=== PATIENT | female | born 1995 | race Caucasian/White ===

== ENCOUNTER 2023-09-13 15:48 | Emergency (ER) | payer BC ==
--- NOTE | 2023-09-13 15:54 | ERPHSYRPT ---
- History of Present Illness Time Seen by Provider: 09/13/23 15:53 Source: patient, family Exam Limitations: no limitations Physician History: This is a 28-year-old white female patient who arrives by private vehicle with her mother and has had a global high intensity headache described as generalized constant pressure. Is been present for 3 days. She has no history of head injury. She denies being . She denies vision changes. She has not responded to Aleve or ibuprofen. Her last menstrual period was 2 weeks ago. Patient denies chest pain. Denies shortness of breath. Patient was seen at [facility] earlier today and she states the COVID test and the influenza A and B test were negative. Timing/Duration: day(s) (3) Head Pain Location: global Severity of Pain-Max: moderate Severity of Pain-Current: moderate Recent Head Trauma: no recent headache/trauma Modifying Factors: Improves With: exposure to light, noise Associated Symptoms: sensitive to light, No vision changes Previous symptoms: no prior history, no recent treatment Allergies/Adverse Reactions: cephalexin Allergy (Verified 09/13/23 16:00) Home Medications: Norgestimate-Ethinyl Estradiol [Sprintec 28 Day Tablet] 1 tab PO DAILY 09/13/23 [History] Sertraline HCl 200 mg PO DAILY 09/13/23 [History] Travel Risk - International Travel Have you traveled outside of the country in past 3 weeks: No - Emerging Infectious Disease Are you exhibiting symptoms associated with any current EIDs: No - Review of Systems Constitutional: No Symptoms Eyes: No Symptoms Ears, Nose, & Throat: No Symptoms Respiratory: No Symptoms Cardiac: No Symptoms Abdominal/Gastrointestinal: No Symptoms Genitourinary Symptoms: No Symptoms Musculoskeletal: Arthralgias, Myalgias Neurological: Headache Psychological: No Symptoms Endocrine: No Symptoms Hematologic/Lymphatic: No Symptoms Immunological/Allergic: No Symptoms All Other Systems: Reviewed and Negative - Past Medical History Pertinent Past Medical History: Yes - Nursing Vital Signs Nursing Vital Signs: Initial Vital Signs Temperature 97.7 F 09/13/23 15:55 Pulse Rate 64 09/13/23 15:55 Respiratory Rate 16 09/13/23 15:55 Blood Pressure 120/70 09/13/23 15:55 O2 Sat by Pulse Oximetry 100 09/13/23 15:55 Pain Scale Pain Intensity 0 - Physical Exam General Appearance: mild distress, alert, anxiety Eye Exam: PERRL/EOMI, eyes nml inspection Ears, Nose, Throat Exam: normal ENT inspection, moist mucous membranes Neck Exam: normal inspection, non-tender, supple, full range of motion Respiratory Exam: normal breath sounds, lungs clear, airway intact, No chest tenderness, No respiratory distress Cardiovascular Exam: regular rate/rhythm, normal heart sounds, normal peripheral pulses Gastrointestinal/Abdominal Exam: soft, normal bowel sounds, No tenderness Back Exam: normal inspection, normal range of motion, No CVA tenderness, No vertebral tenderness Extremity Exam: normal inspection, normal range of motion, pelvis stable Mental Status Exam: alert, oriented x 3, 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 Exam: normal hearing, normal speech, PERRL Coordination/Gait Exam: normal finger to nose, normal gait, normal cerebellar function Motor/Sensory Exam: no motor deficit, no sensory deficit Skin Exam: normal color, warm, dry Lymphatic Exam: No adenopathy SpO2 Interpretation: normal O2 Delivery: Room Air - Course Nursing assessment & vital signs reviewed: Yes Ordered Tests: Active Orders 24 hr Category Date Time Status IV Insertion STAT Care 09/13/23 16:24 Active HEAD WITHOUT CONTRAST [CT] Stat Exams 09/13/23 16:11 Completed BMP Stat Lab 09/13/23 16:15 Completed CBC W DIFF Stat Lab 09/13/23 16:15 Completed CULTURE,URINE Stat Lab 09/13/23 16:27 Received HCG QUALITATIVE, SERUM Stat Lab 09/13/23 16:15 Completed MONO SCREEN Stat Lab 09/13/23 16:15 Completed UA W/RFX UR CULTURE Stat Lab 09/13/23 16:27 Completed Medication Summary Discontinued Medications Generic Name Dose Route Start Last Admin Trade Name Antonia PRN Reason Stop Dose Admin Diphenhydramine HCl 25 mg 09/13/23 16:19 09/13/23 16:42 Diphenhydramine Hcl 50 Mg/Ml Vial IV 09/13/23 16:20 25 mg STAT ONE Administration Diphenhydramine HCl Confirm 09/13/23 16:28 Diphenhydramine Hcl 50 Mg/Ml Vial Administered 09/13/23 16:29 Dose 50 mg .ROUTE .STK-MED ONE Sodium Chloride 500 mls @ 500 mls/hr 09/13/23 16:18 09/13/23 17:38 Sodium Chloride 0.9% 500 Ml IV 09/13/23 17:17 Infused .Q1H ONE Infusion Sodium Chloride Confirm 09/13/23 16:28 Sodium Chloride 0.9% 500 Ml Administered 09/13/23 16:29 Dose 500 mls @ ud IV .STK-MED ONE Ketorolac Tromethamine 30 mg 09/13/23 16:19 09/13/23 16:42 Ketorolac Tromethamine 30 Mg/Ml Inj IV 09/13/23 16:20 30 mg STAT ONE Administration Ketorolac Tromethamine Confirm 09/13/23 16:27 Ketorolac Tromethamine 30 Mg/Ml Inj Administered 09/13/23 16:28 Dose 30 mg .ROUTE .STK-MED ONE Levofloxacin 500 mg 09/13/23 17:28 09/13/23 17:33 Levofloxacin 500 Mg Tablet PO 09/13/23 17:29 500 mg STAT ONE Administration Levofloxacin Confirm 09/13/23 17:30 Levofloxacin 500 Mg Tablet Administered 09/13/23 17:31 Dose 500 mg .ROUTE .STK-MED ONE Prochlorperazine Edisylate 5 mg 09/13/23 16:19 09/13/23 16:43 Prochlorperazine Edisylate 10 Mg/2 Ml Vial IV 09/13/23 16:20 5 mg STAT ONE Administration Prochlorperazine Edisylate Confirm 09/13/23 16:28 Prochlorperazine Edisylate 10 Mg/2 Ml Vial Administered 09/13/23 16:29 Dose 10 mg .ROUTE .STK-MED ONE Lab/Rad Data: Laboratory Result Diagrams 09/13/23 16:15 09/13/23 16:15 Laboratory Results 09/13/23 09/13/23 09/13/23 Range/Units 16:27 16:15 16:15 WBC (3.98-10.04) x10^3/uL RBC (3.93-5.22) x10^6/uL Hgb (11.2-15.7) g/dL Hct (34.1-44.9) % MCV (79.4-94.8) fL MCH (25.6-32.2) pg MCHC (32.2-35.5) g/dL RDW (11.7-14.4) % Plt Count (182-369) x10^3/uL MPV (9.4-12.3) fL Gran % (34.0-71.1) % Immature Gran % (Auto) (0.001-0.429) % Nucleat RBC Rel Count (0.00-0.2) % Eos # (Auto) (0.04-0.36) x10^3/uL Immature Gran # (Auto) (0.001-0.031) x10^3u/L Absolute Lymphs (auto) (1.18-3.74) x10^3/uL Absolute Monos (auto) (0.24-0.86) x10^3/uL Absolute Nucleated RBC (0.00-0.012) x10^3u/L Lymphocytes % (19.3-51.7) % Monocytes % (4.7-12.5) % Eosinophils % (0.7-5.8) % Basophils % (0.1-1.2) % Absolute Granulocytes (1.56-6.13) x10^3/uL Basophils # (0.01-0.08) x10^3/uL Sodium (135-145) mmol/L Potassium (3.5-5.1) mmol/L Chloride (98-107) mmol/L Carbon Dioxide (22-30) mmol/L Anion Gap (5-15) MEQ/L BUN (7-17) mg/dL Creatinine (0.52-1.04) mg/dL Estimated GFR ML/MIN Glucose (74-106) mg/dL Calcium (8.4-10.2) mg/dL Serum HCG, Qual NEGATIVE (NEGATIVE) Urine Color Yellow (Yellow) Urine Appearance Clear (Clear) Urine pH 6.0 (4.6-8.0) Ur Specific [place] 1.020 (1.005-1.030) Urine Protein Trace A (Negative) Urine Glucose (UA) Negative (Negative) mg/dL Urine Ketones Trace A (Negative) Urine Blood Negative (Negative) Urine Nitrite Negative (Negative) Urine Bilirubin Negative (Negative) Urine Urobilinogen 0.2 (0.2) mg/dL Ur Leukocyte Esterase Trace A (Negative) U Hyaline Cast (Auto) NONE SEEN (0-2) /LPF Urine Microscopic RBC 3-5 (0-5) /HPF Urine Microscopic WBC 6-10 A (0-5) /HPF Ur Epithelial Cells Moderate A (None Seen) /HPF Urine Bacteria Few A (None Seen) /HPF Urine Culture Reflexed YES (NO) Monoscreen POSITIVE A (NEGATIVE) 09/13/23 09/13/23 Range/Units 16:15 16:15 WBC 5.1 (3.98-10.04) x10^3/uL RBC 4.01 (3.93-5.22) x10^6/uL Hgb 12.2 (11.2-15.7) g/dL Hct 36.6 (34.1-44.9) % MCV 91.3 (79.4-94.8) fL MCH 30.4 (25.6-32.2) pg MCHC 33.3 (32.2-35.5) g/dL RDW 12.5 (11.7-14.4) % Plt Count 150 L (182-369) x10^3/uL MPV 9.8 (9.4-12.3) fL Gran % 56.4 (34.0-71.1) % Immature Gran % (Auto) 0.2 (0.001-0.429) % Nucleat RBC Rel Count 0.0 (0.00-0.2) % Eos # (Auto) 0.04 (0.04-0.36) x10^3/uL Immature Gran # (Auto) 0.01 (0.001-0.031) x10^3u/L Absolute Lymphs (auto) 1.75 (1.18-3.74) x10^3/uL Absolute Monos (auto) 0.40 (0.24-0.86) x10^3/uL Absolute Nucleated RBC 0.00 (0.00-0.012) x10^3u/L Lymphocytes % 34.5 (19.3-51.7) % Monocytes % 7.9 (4.7-12.5) % Eosinophils % 0.8 (0.7-5.8) % Basophils % 0.2 (0.1-1.2) % Absolute Granulocytes 2.86 (1.56-6.13) x10^3/uL Basophils # 0.01 (0.01-0.08) x10^3/uL Sodium 137 (135-145) mmol/L Potassium 3.8 (3.5-5.1) mmol/L Chloride 105 (98-107) mmol/L Carbon Dioxide 25 (22-30) mmol/L Anion Gap 11.3 (5-15) MEQ/L BUN 13 (7-17) mg/dL Creatinine 0.91 (0.52-1.04) mg/dL Estimated GFR 88.7 ML/MIN Glucose 91 (74-106) mg/dL Calcium 8.8 (8.4-10.2) mg/dL Serum HCG, Qual (NEGATIVE) Urine Color (Yellow) Urine Appearance (Clear) Urine pH (4.6-8.0) Ur Specific [place] (1.005-1.030) Urine Protein (Negative) Urine Glucose (UA) (Negative) mg/dL Urine Ketones (Negative) Urine Blood (Negative) Urine Nitrite (Negative) Urine Bilirubin (Negative) Urine Urobilinogen (0.2) mg/dL Ur Leukocyte Esterase (Negative) U Hyaline Cast (Auto) (0-2) /LPF Urine Microscopic RBC (0-5) /HPF Urine Microscopic WBC (0-5) /HPF Ur Epithelial Cells (None Seen) /HPF Urine Bacteria (None Seen) /HPF Urine Culture Reflexed (NO) Monoscreen (NEGATIVE) - Progress Progress: improved, re-examined Air Movement: good Progress Note: 09/13/23 16:25 My medical decision making and the assignment of moderate complexity to this patient's medical issue today is based on review of the patient's past medical history, review of the patient's medication list, review of patient drug allergy list, history present illness and physical findings on examination. The workup in this patient includes intravenous line placement, infusion normal saline solution, infusion of Benadryl, Compazine and Toradol, urinalysis, CBC, BMP and monotest. In addition, the patient will undergo a CT scan of the head without contrast. Differential diagnosis includes but is not limited to acute intracranial abnormality, mononucleosis, urinary tract infection, dehydration, anemia 09/13/23 17:41 Interpreted the patient's laboratory data results. Based on the laboratory data results, the patient has mononucleosis and a urinary tract infection. CT scan of the head without contrast is normal. This study was interpreted by the radiologist and I reviewed the impression. Blood Culture(s) Obtained: No Antibiotics given: Yes Counseled pt/family regarding: lab results, diagnosis, need for follow-up, rad results Medical Desision Making - Independent Historian Additional History obtained from: Mother - Diagnostic Testing Diagnostic test were ordered, analyzed, and reviewed by me: Yes Radiological Interpretation: Reviewed by me, Teleradiologist Report - Risk of complications The pt has a mod risk of morbidity or mortality based on: Need for prescription drug management - Departure Departure Disposition: Home Clinical Impression: Mononucleosis, UTI (urinary tract infection) Condition: Stable Critical Care Time: No Referrals: JENIFER CUNHA VIOLIN MECHANIC [Primary Care Provider] - Follow up/PCP as directed Additional Instructions: Drink plenty of fluids. Use Tylenol and ibuprofen for fever and pain control. Take your antibiotics and other medications as prescribed. Forms: Work/School Release Form Prescriptions: Ciprofloxacin [Cipro 500 MG] 500 mg PO BID #14 tablet
[2023-09-13 16:08] VITALS: TEMP 97.7
[2023-09-13 16:25] LABS: Absolute Neutrophil Ct (ANC) 2.86 x10^3/uL (1.56-6.13); BASOPHIL % 0.2 % (0.1-1.2); Basophil (Absolute #) 0.01 x10^3/uL (0.01-0.08); Eosinophil % 0.8 % (0.7-5.8); Eosinophil (Absolute #) 0.04 x10^3/uL (0.04-0.36); Hematocrit 36.6 % (34.1-44.9); Hemoglobin 12.2 g/dL (11.2-15.7); IMMATURE GRAN # 0.01 x10^3u/L (0.001-0.031); IMMATURE GRAN % 0.2 % (0.001-0.429); Lymphocyte (Absolute #) 1.75 x10^3/uL (1.18-3.74); Lymphocytes % 34.5 % (19.3-51.7); Mean Cell Volume 91.3 fL (79.4-94.8); Mean Corpuscular Hemoglobin 30.4 pg (25.6-32.2); Mean Corpuscular Hgb Concent. 33.3 g/dL (32.2-35.5); Mean Platelet Volume 9.8 fL (9.4-12.3); Monocytes % 7.9 % (4.7-12.5); Neutrophil % 56.4 % (34.0-71.1); Platelet Count 150 x10^3/uL (182-369); Red Blood Count 4.01 x10^6/uL (3.93-5.22); Red Cell Distribution Width 12.5 % (11.7-14.4); White Blood Count 5.1 x10^3/uL (3.98-10.04)
[2023-09-13] MEDS ORDERED: TORAdol 30 mg Injection ONE (16:27)
[2023-09-13] MEDS ORDERED: Compazine 10 MG/2 ML ONE (16:28)
[2023-09-13] MEDS ORDERED: BENADRYL 50 MG/ML ONE (16:28)
[2023-09-13] MEDS ORDERED: Sodium Chloride 0.9% 500 ML 500 ML IV ONE (16:28)
[2023-09-13 16:38] LABS: ANION GAP 11.3 MEQ/L (5-15); Calcium 8.8 mg/dL (8.4-10.2); Creatinine 1 0.91 mg/dL (0.52-1.04); EST GLOMERULAR FILTRATION RATE 88.7 ML/MIN; Potassium 3.8 mmol/L (3.5-5.1)
[2023-09-13 16:39] LABS: Appearance Clear (Clear); Bacteria Few /HPF (None Seen); Bilirubin Negative (Negative); Blood Negative (Negative); Epithelial Cells Moderate /HPF (None Seen); Glucose, Urine Negative (Negative); Hyaline Casts NONE SEEN /LPF (0-2); Ketones Trace (Negative); Leukocyte Esterase Trace (Negative); Nitrite Negative (Negative); Protein,Urine Dip Trace (Negative); Urobilinogen 0.2 mg/dL (0.2)
[2023-09-13 16:40] LABS: ADD URINE CULTURE? YES (NO)
[2023-09-13] MEDS: Sodium Chloride 0.9% 500 ML 500 ML IV ONE (16:41)
[2023-09-13] MEDS: TORAdol 30 mg Injection IV ONE (16:42)
[2023-09-13] MEDS: BENADRYL 50 MG/ML IV ONE (16:42)
[2023-09-13 16:43] LABS: HCG SERUM TEST NEGATIVE (NEGATIVE)
[2023-09-13] MEDS: Compazine 10 MG/2 ML IV ONE (16:43)
--- NOTE | 2023-09-13 17:08 | XRAY ---
Indication: Severe headache 3 days. Multiple contiguous axial images obtained through the head without contrast. Comparison: None Normal appearing brain parenchyma, ventricles, and bony calvarium. Visualized paranasal sinuses and mastoid air cells are clear. Impression: Normal CT head without contrast exam.
[2023-09-13] MEDS ORDERED: Levofloxacin 500 MG Tablet ONE (17:30)
[2023-09-13] MEDS: Levofloxacin 500 MG Tablet PO ONE (17:33)
[2023-09-13 17:44] VITALS: BP 111/69; PULSE 79; RESP 14; O2SAT 97
== END 2023-09-13 17:52 | disposition home or self-care (01) ==
LOC: ED 15:48
DX: B27.90 Infectious mononucleosis, unspecified without complication (principal); N39.0 Urinary tract infection, site not specified; R51.9 Headache, unspecified; Z79.899 Other long term (current) drug therapy
CPT/HCPCS: 36000; 36415; 70450; 80048; 81001; 84703; 85025; 86308; 87086; 96374; 96375; 99284; J1200; J1885; A9270-GY

== ENCOUNTER 2023-10-09 17:47 | Emergency (ER) | payer BC ==
[2023-10-09 18:06] VITALS: RESP 20; TEMP 98.4
[2023-10-09] MEDS ORDERED: Sodium Chloride 0.9% 1000 ML 1,000 ML ONE (18:25)
[2023-10-09] MEDS ORDERED: Zofran 4 MG/2 ML VIAL ONE (18:25)
[2023-10-09] MEDS ORDERED: TORAdol 30 mg Injection ONE (18:25)
[2023-10-09 18:28] LABS: Absolute Neutrophil Ct (ANC) 4.45 x10^3/uL (1.56-6.13); BASOPHIL % 0.2 % (0.1-1.2); Basophil (Absolute #) 0.01 x10^3/uL (0.01-0.08); Eosinophil % 0.6 % (0.7-5.8); Eosinophil (Absolute #) 0.04 x10^3/uL (0.04-0.36); Hematocrit 39.1 % (34.1-44.9); Hemoglobin 12.9 g/dL (11.2-15.7); IMMATURE GRAN # 0.02 x10^3u/L (0.001-0.031); IMMATURE GRAN % 0.3 % (0.001-0.429); Lymphocytes % 20.4 % (19.3-51.7); Mean Cell Volume 91.6 fL (79.4-94.8); Mean Corpuscular Hemoglobin 30.2 pg (25.6-32.2); Mean Platelet Volume 10.4 fL (9.4-12.3); Monocyte (Absolute #) 0.54 x10^3/uL (0.24-0.86); Monocytes % 8.5 % (4.7-12.5); Platelet Count 147 x10^3/uL (182-369); Red Blood Count 4.27 x10^6/uL (3.93-5.22); Red Cell Distribution Width 12.5 % (11.7-14.4); White Blood Count 6.4 x10^3/uL (3.98-10.04)
[2023-10-09] MEDS: Sodium Chloride 0.9% 1000 ML 1,000 ML IV STA (18:28)
[2023-10-09] MEDS: Zofran 4 MG/2 ML VIAL IV ONE (18:29)
[2023-10-09] MEDS: TORAdol 30 mg Injection IV ONE (18:29)
[2023-10-09 18:31] LABS: HCG URINE TEST NEGATIVE (NEGATIVE)
[2023-10-09 18:33] LABS: ALBUMIN 4.2 g/dL (3.5-5.0); ANION GAP 14.6 MEQ/L (5-15); BILIRUBIN,TOTAL 0.4 mg/dL (0.2-1.3); Calcium 9.3 mg/dL (8.4-10.2); Creatinine 1 0.8 mg/dL (0.52-1.04); EST GLOMERULAR FILTRATION RATE 103.5 ML/MIN; Potassium 4.1 mmol/L (3.5-5.1); Total Protein 7.2 g/dL (6.3-8.2)
[2023-10-09 18:36] LABS: Appearance Clear (Clear); Bacteria None Seen /HPF (None Seen); Bilirubin Negative (Negative); Blood Moderate (Negative); Epithelial Cells Few /HPF (None Seen); Glucose, Urine Negative (Negative); Hyaline Casts NONE SEEN /LPF (0-2); Ketones Negative (Negative); Leukocyte Esterase Small (Negative); Nitrite Negative (Negative); Protein,Urine Dip Trace (Negative); Specific Gravity 1.015 (1.005-1.030); Urobilinogen 0.2 mg/dL (0.2)
[2023-10-09 18:37] LABS: ADD URINE CULTURE? YES (NO)
[2023-10-09 19:29] VITALS: O2SAT 99
[2023-10-09 19:31] LABS: INFLUENZA A NEGATIVE (NEGATIVE); INFLUENZA B NEGATIVE (NEGATIVE); RESPIRATORY SYNCTIAL VIRUS NEGATIVE (NEGATIVE); SARS-CoV-2 Xpert Express NEGATIVE (NEGATIVE)
--- NOTE | 2023-10-09 19:31 | XRAY ---
CLINICAL HISTORY: abd pain COMPARISON: No prior studies are available for comparison. TECHNIQUE: Non-contrast CT of the abdomen and pelvis was performed, with the following protocol: axial images, and reconstructed coronal and sagittal images. No intravenous contrast was administered. One of the following dose reduction techniques was utilized for this exam: Automated exposure control, adjustment of the mA and/or kV according to patient size, and use of iterative reconstruction. CTDI: 4.34mGy; DLP: 220.20mGy-cm. FINDINGS: Abdomen: Liver: measures 20 cm. Normal in shape, and density. No focal lesions, cysts, or masses were identified. Gallbladder and Biliary System: Cholecystectomy luciano with a clear operative bed. Pancreas: Pancreatic head, body, and tail are visualized and appear normal in size and density. No pancreatic masses or calcifications were noted. Spleen: Normal in size, shape, and density. No splenic lesions or masses were identified. Kidneys and Adrenal Glands: Both kidneys are normal in size, shape, and position. Cortical thickness is within normal limits. No renal calculi or hydronephrosis. Adrenal glands are unremarkable. Appendix: The appendix is not clearly identified. Pelvis: Urinary Bladder: Normal in contour and wall thickness. No intraluminal lesions. Uterus: Normal in size and contour. No masses or abnormal thickening. Ovaries: Not well visualized but no gross abnormalities noted. Vagina: Normal in contour and wall thickness. Cervix: No evidence of mass or abnormal thickening. Peritoneal and Retroperitoneal Structures: No free fluid or abnormal fluid collections were identified within the abdomen or pelvis. fat smudging a the right iliac fossa around the cecum. shotty mesenteric lymph nodes. Bowel: The visualized bowel loops are normal in caliber and appearance. No evidence of bowel obstruction or wall thickening. Bones and Soft Tissues: Pelvic bones and soft tissues are unremarkable. No fractures or abnormal masses were identified. IMPRESSION: Fat smudging at the right iliac fossa with shotty mesenteric lymph nodes suggests mild inflammation. Appendicitis not suspected. Electronically Signed by: Yoshi Man MD. (10/09/2023 19:27:58 EDT)
--- NOTE | 2023-10-09 20:19 | ERPHSYRPT ---
- History of Present Illness Time Seen by Provider: 10/09/23 17:50 Historian: patient Exam Limitations: no limitations Patient Subjective Stated Complaint: Abdominal pain Triage Nursing Assessment: Patient ambulated back to ED and transferred self to bed. Patient A+O x 3. Patient's skin pink, warm and dry. Patient complains of abdominal pain, N/V and diarrhea for 2 days. Abdomen soft and round with BS X 4. Physician History: 28-year-old presented in the ER with complains of abdominal pain with nausea vomiting and diarrhea off and on for the last couple of days. Patient reports moderate intensity dull aching to sharp pain all over abdomen with no significant aggravating or relieving factors. Patient also reports having low- grade temperature yesterday with some nasal/sinus congestion with no cough. Patient is currently afebrile. No difficulty urination. No known sick contact. Allergies/Adverse Reactions: cephalexin Allergy (Verified 10/09/23 17:55) Home Medications: Norgestimate-Ethinyl Estradiol [Sprintec 28 Day Tablet] 1 tab PO DAILY 09/13/23 [History] Sertraline HCl 200 mg PO DAILY 09/13/23 [History] Hx Tetanus, Diphtheria Vaccination/Date Given: Yes Hx Influenza Vaccination/Date Given: No Hx Pneumococcal Vaccination/Date Given: No Immunizations Up to Date: Yes Travel Risk - International Travel Have you traveled outside of the country in past 3 weeks: No - Emerging Infectious Disease Are you exhibiting symptoms associated with any current EIDs: No Symptoms: Headaches/Body Aches/ - Review of Systems Constitutional: Fever, Fatigue Eyes: No Symptoms Ears, Nose, & Throat: Nose Congestion Respiratory: No Symptoms Cardiac: No Symptoms Abdominal/Gastrointestinal: Abdominal Pain, Nausea, Vomiting, Diarrhea Genitourinary Symptoms: No Symptoms Musculoskeletal: Myalgias Skin: No Symptoms Neurological: No Symptoms Endocrine: No Symptoms Hematologic/Lymphatic: No Symptoms Immunological/Allergic: No Symptoms - Past Medical History Pertinent Past Medical History: Yes GI Medical History: Gallbladder Disease Psycho-Social History: Anxiety - Past Surgical History Past Surgical History: Yes Gastrointestinal: Cholecystectomy Female Surgical History: Section Other Surgical History: OVARIAN CYST, CARPAL TUNNEL - Female History Hx Last Menstrual Period: last month Hx Now: (unkn) - Social History Smoking Status: Never smoker Exposure to second hand smoke: No Drug Use: none - Social Determinants of Health Will the patient participate in the screening: Yes Do you worry about a steady place to live?: No Do you have any problems with any of the following?: No known problems In the past 12 months,have you had to go without utilities?: No Transportation Issues: No Has anyone in your support network made you feel unsafe?: No Have you or anyone in your house had to go without enough: No - Nursing Vital Signs Nursing Vital Signs: Initial Vital Signs Temperature 98.4 F 10/09/23 17:56 Pulse Rate 88 10/09/23 17:56 Respiratory Rate 20 10/09/23 17:56 Blood Pressure 119/74 10/09/23 17:56 O2 Sat by Pulse Oximetry 97 10/09/23 17:56 Pain Scale Pain Intensity 7 - Physical Exam General Appearance: no apparent distress, alert, anxiety Eye Exam: PERRL/EOMI Ears, Nose, Throat Exam: normal ENT inspection Neck Exam: normal inspection, supple, full range of motion Respiratory Exam: normal breath sounds, lungs clear Cardiovascular Exam: regular rate/rhythm, normal heart sounds Gastrointestinal/Abdomen Exam: soft, normal bowel sounds, tenderness (Generalized), guarding (Minimal guarding periumbilical area), No distention Back Exam: normal inspection, normal range of motion Extremity Exam: normal inspection, normal range of motion Skin Exam: normal color SpO2 Interpretation: normal SpO2: 99 O2 Delivery: Room Air Ordered Tests: Active Orders 24 hr Category Date Time Status IV Insertion STAT Care 10/09/23 18:20 Active NPO (ED) STAT Care 10/09/23 18:20 Active ABDOMEN AND PELVIS W/0 CONTRAS [CT] Stat Exams 10/09/23 18:21 Completed CBC W DIFF Stat Lab 10/09/23 18:10 Completed CMP Stat Lab 10/09/23 18:10 Completed CULTURE,URINE Stat Lab 10/09/23 18:10 Received HCG QUALITATIVE, URINE Stat Lab 10/09/23 18:10 Completed LIPASE Stat Lab 10/09/23 18:10 Completed UA W/RFX UR CULTURE Stat Lab 10/09/23 18:10 Completed Medication Summary Discontinued Medications Generic Name Dose Route Start Last Admin Trade Name Freq PRN Reason Stop Dose Admin Sodium Chloride 1,000 mls @ 999 mls/hr 10/09/23 18:20 10/09/23 19:32 Sodium Chloride 0.9% 1000 Ml IV 10/09/23 19:20 Infused .Q1H1M STA Infusion Sodium Chloride Confirm 10/09/23 18:25 Sodium Chloride 0.9% 1000 Ml Administered 10/09/23 18:26 Dose 1,000 mls @ ud .ROUTE .STK-MED ONE Ketorolac Tromethamine 30 mg 10/09/23 18:20 10/09/23 18:29 Ketorolac Tromethamine 30 Mg/Ml Inj IV 10/09/23 18:21 30 mg STAT ONE Administration Ketorolac Tromethamine Confirm 10/09/23 18:25 Ketorolac Tromethamine 30 Mg/Ml Inj Administered 10/09/23 18:26 Dose 30 mg .ROUTE .STK-MED ONE Ondansetron HCl 4 mg 10/09/23 18:20 10/09/23 18:29 Ondansetron Hcl 4 Mg/2 Ml Vial IV 10/09/23 18:21 4 mg STAT ONE Administration Ondansetron HCl Confirm 10/09/23 18:25 Ondansetron Hcl 4 Mg/2 Ml Vial Administered 10/09/23 18:26 Dose 4 mg .ROUTE .STK-MED ONE Trimethoprim/Sulfamethoxazole 1 tab 10/09/23 20:00 Smz/Tmp Ds Tablet 1 Tablet PO 10/09/23 20:01 STAT STA Lab/Rad Data: Laboratory Result Diagrams 10/09/23 18:10 10/09/23 18:10 Laboratory Results 10/09/23 10/09/23 10/09/23 Range/Units 18:52 18:10 18:10 WBC (3.98-10.04) x10^3/uL RBC (3.93-5.22) x10^6/uL Hgb (11.2-15.7) g/dL Hct (34.1-44.9) % MCV (79.4-94.8) fL MCH (25.6-32.2) pg MCHC (32.2-35.5) g/dL RDW (11.7-14.4) % Plt Count (182-369) x10^3/uL MPV (9.4-12.3) fL Gran % (34.0-71.1) % Immature Gran % (Auto) (0.001-0.429) % Nucleat RBC Rel Count (0.00-0.2) % Eos # (Auto) (0.04-0.36) x10^3/uL Immature Gran # (Auto) (0.001-0.031) x10^3u/L Absolute Lymphs (auto) (1.18-3.74) x10^3/uL Absolute Monos (auto) (0.24-0.86) x10^3/uL Absolute Nucleated RBC (0.00-0.012) x10^3u/L Lymphocytes % (19.3-51.7) % Monocytes % (4.7-12.5) % Eosinophils % (0.7-5.8) % Basophils % (0.1-1.2) % Absolute Granulocytes (1.56-6.13) x10^3/uL Basophils # (0.01-0.08) x10^3/uL Sodium (135-145) mmol/L Potassium (3.5-5.1) mmol/L Chloride (98-107) mmol/L Carbon Dioxide (22-30) mmol/L Anion Gap (5-15) MEQ/L BUN (7-17) mg/dL Creatinine (0.52-1.04) mg/dL Estimated GFR ML/MIN Glucose (74-106) mg/dL Calcium (8.4-10.2) mg/dL Total Bilirubin (0.2-1.3) mg/dL AST (14-36) U/L ALT (0-35) U/L Alkaline Phosphatase (38-126) U/L Serum Total Protein (6.3-8.2) g/dL Albumin (3.5-5.0) g/dL Lipase (23-300) U/L Urine Color Yellow (Yellow) Urine Appearance Clear (Clear) Urine pH 6.0 (4.6-8.0) Ur Specific [place] 1.015 (1.005-1.030) Urine Protein Trace A (Negative) Urine Glucose (UA) Negative (Negative) mg/dL Urine Ketones Negative (Negative) Urine Blood Moderate A (Negative) Urine Nitrite Negative (Negative) Urine Bilirubin Negative (Negative) Urine Urobilinogen 0.2 (0.2) mg/dL Ur Leukocyte Esterase Small A (Negative) U Hyaline Cast (Auto) NONE SEEN (0-2) /LPF Urine Microscopic RBC 11-20 A (0-5) /HPF Urine Microscopic WBC 6-10 A (0-5) /HPF Ur Epithelial Cells Few (None Seen) /HPF Urine Bacteria None Seen (None Seen) /HPF Urine Culture Reflexed YES (NO) Urine HCG, Qual NEGATIVE (NEGATIVE) Influenza Type A Ag NEGATIVE (NEGATIVE) Influenza Type B Ag NEGATIVE (NEGATIVE) RSV (PCR) NEGATIVE (NEGATIVE) SARS-CoV-2 (PCR) NEGATIVE (NEGATIVE) 10/09/23 10/09/23 Range/Units 18:10 18:10 WBC 6.4 (3.98-10.04) x10^3/uL RBC 4.27 (3.93-5.22) x10^6/uL Hgb 12.9 (11.2-15.7) g/dL Hct 39.1 (34.1-44.9) % MCV 91.6 (79.4-94.8) fL MCH 30.2 (25.6-32.2) pg MCHC 33.0 (32.2-35.5) g/dL RDW 12.5 (11.7-14.4) % Plt Count 147 L (182-369) x10^3/uL MPV 10.4 (9.4-12.3) fL Gran % 70.0 (34.0-71.1) % Immature Gran % (Auto) 0.3 (0.001-0.429) % Nucleat RBC Rel Count 0.0 (0.00-0.2) % Eos # (Auto) 0.04 (0.04-0.36) x10^3/uL Immature Gran # (Auto) 0.02 (0.001-0.031) x10^3u/L Absolute Lymphs (auto) 1.30 (1.18-3.74) x10^3/uL Absolute Monos (auto) 0.54 (0.24-0.86) x10^3/uL Absolute Nucleated RBC 0.00 (0.00-0.012) x10^3u/L Lymphocytes % 20.4 (19.3-51.7) % Monocytes % 8.5 (4.7-12.5) % Eosinophils % 0.6 L (0.7-5.8) % Basophils % 0.2 (0.1-1.2) % Absolute Granulocytes 4.45 (1.56-6.13) x10^3/uL Basophils # 0.01 (0.01-0.08) x10^3/uL Sodium 138 (135-145) mmol/L Potassium 4.1 (3.5-5.1) mmol/L Chloride 103 (98-107) mmol/L Carbon Dioxide 24 (22-30) mmol/L Anion Gap 14.6 (5-15) MEQ/L BUN 12 (7-17) mg/dL Creatinine 0.80 (0.52-1.04) mg/dL Estimated GFR 103.5 ML/MIN Glucose 89 (74-106) mg/dL Calcium 9.3 (8.4-10.2) mg/dL Total Bilirubin 0.40 (0.2-1.3) mg/dL AST 28 (14-36) U/L ALT 13 (0-35) U/L Alkaline Phosphatase 41 (38-126) U/L Serum Total Protein 7.2 (6.3-8.2) g/dL Albumin 4.2 (3.5-5.0) g/dL Lipase 42 (23-300) U/L Urine Color (Yellow) Urine Appearance (Clear) Urine pH (4.6-8.0) Ur Specific [place] (1.005-1.030) Urine Protein (Negative) Urine Glucose (UA) (Negative) mg/dL Urine Ketones (Negative) Urine Blood (Negative) Urine Nitrite (Negative) Urine Bilirubin (Negative) Urine Urobilinogen (0.2) mg/dL Ur Leukocyte Esterase (Negative) U Hyaline Cast (Auto) (0-2) /LPF Urine Microscopic RBC (0-5) /HPF Urine Microscopic WBC (0-5) /HPF Ur Epithelial Cells (None Seen) /HPF Urine Bacteria (None Seen) /HPF Urine Culture Reflexed (NO) Urine HCG, Qual (NEGATIVE) Influenza Type A Ag (NEGATIVE) Influenza Type B Ag (NEGATIVE) RSV (PCR) (NEGATIVE) SARS-CoV-2 (PCR) (NEGATIVE) - Progress Progress: improved Progress Note: 10/09/23 20:16 28-year-old is evaluated in the ER for abdominal pain with nausea vomiting diarrhea and flulike symptoms. She is given fluids and symptomatic treatment, on reevaluation she is feeling much better. No peritoneal signs on repeated evaluations. Workup showed normal white count, unremarkable chemistries. Negative flu COVID and RSV. Does have UTI and given dose of antibiotics. Obtain CT abdomen pelvis which showed smudging of fat in the right lower quadrant but no signs of acute appendicitis. Patient has minimal tenderness in the right lower quadrant. I believe patient has viral etiology symptoms, recommended supportive care. Discussed signs symptoms of worsening needing return to ER which she seems understanding. Stable for discharge. Counseled pt/family regarding: lab results, diagnosis, need for follow-up, rad results Medical Desision Making - Independent Historian Additional History obtained from: Family - Diagnostic Testing Diagnostic test were ordered, analyzed, and reviewed by me: Yes Radiological Interpretation: Reviewed by me, Teleradiologist Report - Risk of complications The pt has a mod risk of morbidity or mortality based on: Need for prescription drug management - Departure Departure Disposition: Home Clinical Impression: UTI (urinary tract infection), Viral syndrome, Abdominal pain Condition: Stable Critical Care Time: No Referrals: RUPERT TRIMBLE NP [Primary Care Provider] - Follow up with PCP 1 day Instructions: Severe Abdominal Pain, Adult (DC) Additional Instructions: Take Tylenol/ibuprofen as needed. Follow-up with your primary care for reevaluation. Return to ER for intractable abdominal pain/vomiting/fever chills etc. Prescriptions: Smz/Tmp Ds Tablet [Bactrim Ds Tablet] 1 udtab PO BID #14 tablet Ondansetron ODT 4 MG [Zofran Odt 4 mg] 1 ea PO QIDPRN PRN #7 tablet PRN Reason: n/v
[2023-10-09] MEDS ORDERED: BACTRIM DS TABLET PO ONE (20:28)
[2023-10-09] MEDS: BACTRIM DS TABLET PO STA (20:29)
[2023-10-09 20:34] VITALS: BP 95/61; PULSE 78
== END 2023-10-09 20:37 | disposition home or self-care (01) ==
LOC: ED 17:47
DX: N39.0 Urinary tract infection, site not specified (principal); B34.9 Viral infection, unspecified; R10.9 Unspecified abdominal pain; R11.2 Nausea with vomiting, unspecified; R19.7 Diarrhea, unspecified; Z79.899 Other long term (current) drug therapy
CPT/HCPCS: 0241U; 36000; 36415; 74176; 80053; 81001; 81025; 83690; 85025; 87086; 96360; 96374; 96375; 99284; J1885; J2405; A9270-GY

== ENCOUNTER 2024-12-08 11:51 | Emergency (ER) | payer BC ==
--- NOTE | 2024-12-08 12:05 | ERPHSYRPT ---
- History of Present Illness Time Seen by Provider: 12/08/24 12:03 Source: patient Exam Limitations: no limitations Physician History: This is a 29-year-old white female patient who arrives by private vehicle accompanied by her mother and is a patient of nurse practitioner Edin whose had lower abdominal and pelvic pain in the last 2 days without fevers. She has had no vaginal discharge. She has had no nausea vomiting or diarrhea symptoms. Patient was seen by nurse practitioner Edin yesterday and diagnosed with a urinary tract infection and given a prescription of antibiotics. She just picked those up this morning and has not taken any antibiotics as of yet. Patient describes the pain as a pressure. Her symptoms are worse today. Patient's last menstrual period was 2 weeks ago. Patient has had a cholecystectomy in the past. She also has a history of ovarian cyst approximately 12 years ago. Timing/Duration: day(s) (1 to 2 days), worse Activites at Onset: none Quality: pressure Onset Location: suprapubic, pelvic pain Pain Radiation: none Severity of Pain-Max: moderate Severity of Pain-Current: moderate Prior abdominal problems: none Sexual intercourse history: non-contributory Modifying Factors: Improves With: nothing Associated Symptoms: abdominal pain (Suprapubic and pelvic pain) Allergies/Adverse Reactions: cephalexin Allergy (Verified 12/08/24 12:08) Home Medications: Norgestimate-Ethinyl Estradiol [Sprintec 28 Day Tablet] 1 tab PO DAILY 09/13/23 [History] Sertraline HCl 200 mg PO DAILY 09/13/23 [History] Hx Tetanus, Diphtheria Vaccination/Date Given: Yes Hx Influenza Vaccination/Date Given: No Hx Pneumococcal Vaccination/Date Given: No Travel Risk - International Travel Have you traveled outside of the country in past 3 weeks: No - Emerging Infectious Disease Are you exhibiting symptoms associated with any current EIDs: No Symptoms: Headaches/Body Aches/ - Review of Systems Constitutional: No Symptoms Eyes: No Symptoms Ears, Nose, & Throat: No Symptoms Respiratory: No Symptoms Cardiac: No Symptoms Abdominal/Gastrointestinal: Abdominal Pain (Suprapubic and pelvic pain) Genitourinary Symptoms: No Symptoms Musculoskeletal: No Symptoms Skin: No Symptoms Neurological: No Symptoms Psychological: No Symptoms Endocrine: No Symptoms Hematologic/Lymphatic: No Symptoms Immunological/Allergic: No Symptoms All Other Systems: Reviewed and Negative - Past Medical History Pertinent Past Medical History: Yes GI Medical History: Gallbladder Disease Psycho-Social History: Anxiety - Past Surgical History Past Surgical History: Yes Gastrointestinal: Cholecystectomy Female Surgical History: Section Other Surgical History: OVARIAN CYST, CARPAL TUNNEL - Female History Hx Last Menstrual Period: last month - Social History Smoking Status: Never smoker Exposure to second hand smoke: No Drug Use: none - Social Determinants of Health Will the patient participate in the screening: Yes Do you worry about a steady place to live?: No In the past 12 months,have you had to go without utilities?: No Transportation Issues: No Has anyone in your support network made you feel unsafe?: No Have you or anyone in your house had to go w/o enough food: No - Nursing Vital Signs Nursing Vital Signs: Initial Vital Signs Pulse Rate 78 12/08/24 12:00 Respiratory Rate 16 12/08/24 12:00 Blood Pressure 113/71 12/08/24 12:00 O2 Sat by Pulse Oximetry 100 12/08/24 12:00 Pain Scale Pain Intensity 8 - Physical Exam General Appearance: no apparent distress, alert, anxiety Eye Exam: PERRL/EOMI, eyes nml inspection Ears, Nose, Throat Exam: normal ENT inspection, moist mucous membranes Neck Exam: normal inspection, non-tender, supple, full range of motion Respiratory Exam: airway intact, No chest tenderness, No respiratory distress Gastrointestinal/Abdomen Exam: soft, normal bowel sounds, tenderness (Suprapubic), guarding (Suprapubic region to palpation sregion to palpation), No rebound Pelvic Exam: not done Rectal Exam: not done Back Exam: normal inspection, normal range of motion, No CVA tenderness, No vertebral tenderness Extremity Exam: normal inspection, normal range of motion, pelvis stable Neurologic Exam: alert, oriented x 3, cooperative, senior design engineering specialist II-XII nml as tested, normal mood/affect, nml cerebellar function, nml station & gait, sensation nml Skin Exam: normal color, warm, dry Lymphatic Exam: adenopathy SpO2 Interpretation: normal O2 Delivery: Room Air - Course Nursing assessment & vital signs reviewed: Yes Ordered Tests: Active Orders 24 hr Category Date Time Status ABDOMEN AND PELVIS W/0 CONTRAS [CT] Stat Exams 12/08/24 12:48 Completed HCG QUALITATIVE, URINE Stat Lab 12/08/24 12:00 Completed UA W/RFX UR CULTURE Stat Lab 12/08/24 12:00 Completed Lab/Rad Data: Laboratory Results 12/08/24 12/08/24 Range/Units 12:00 12:00 Urine Color Yellow (Yellow) Urine Appearance Clear (Clear) Urine pH 7.5 (4.6-8.0) Ur Specific [place] 1.015 (1.005-1.030) Urine Protein Negative (Negative) Urine Glucose (UA) Negative (Negative) mg/dL Urine Ketones Negative (Negative) Urine Blood Negative (Negative) Urine Nitrite Negative (Negative) Urine Bilirubin Negative (Negative) Urine Urobilinogen 0.2 (0.2) mg/dL Ur Leukocyte Esterase Trace A (Negative) U Hyaline Cast (Auto) NONE SEEN (0-2) /LPF Urine Microscopic RBC 0-2 (0-5) /HPF Urine Microscopic WBC 0-2 (0-5) /HPF Ur Epithelial Cells Rare (None Seen) /HPF Urine Bacteria None Seen (None Seen) /HPF Urine Culture Reflexed NO (NO) Urine HCG, Qual NEGATIVE (NEGATIVE) - Progress Progress: improved Air Movement: good Progress Note: 12/08/24 13:01 My medical decision making and the assignment of moderate complexity of this patient's medical issue today is based on review of the patient's past medical history, review of the patient's medication list, reviewed patient drug allergy list, history present illness and physical findings on examination. The workup in this patient includes urinalysis, urine test, CT scan of the abdomen pelvis without contrast. If there is a surgical issue such as acute appendicitis necessitating surgical intervention, we will then placed an intravenous line and obtain blood for laboratory data evaluation. Differential diagnosis includes but is not limited to ovarian cyst, acute appendicitis, fecal impaction, ureterolithiasis 12/08/24 14:44 I interpreted the patient's laboratory data results. Based on the laboratory data results, there are no acute, emergent medical issues. CT scan of the abdomen pelvis without contrast was interpreted by the radiologist and I reviewed the impression. The impression states: New 5.5 x 4.2 cm right ovarian cyst. There is new cul-de-sac fluid presumed from ruptured/leaking cyst. The noncontrast stomach and bowel loops appear nonobstructed. There is a normal appendix. Blood Culture(s) Obtained: No Antibiotics given: No Counseled pt/family regarding: lab results, diagnosis, need for follow-up, rad results Medical Desision Making - Independent Historian Additional History obtained from: Mother, Family - Diagnostic Testing Diagnostic test were ordered, analyzed, and reviewed by me: Yes Radiological Interpretation: Reviewed by me, Teleradiologist Report - Risk of complications Low Risk: Low risk of morbidity from additional dx testing or treatment - Departure Departure Disposition: Home Clinical Impression: Ruptured ovarian cyst Condition: Stable Critical Care Time: No Referrals: RUPERT TRIMBLE NP [Primary Care Provider, [facility]] - Follow up/PCP as directed Additional Instructions: Drink plenty of fluids. Use Tylenol and ibuprofen for pain control. Call your primary care provider for further evaluation and management.
[2024-12-08 12:06] VITALS: RESP 18
[2024-12-08 12:11] LABS: HCG URINE TEST NEGATIVE (NEGATIVE)
[2024-12-08 12:13] LABS: Glucose, Urine Negative (Negative); Protein,Urine Dip Negative (Negative); RBC 0-2 /HPF (0-5); WBC 0-2 /HPF (0-5)
[2024-12-08 12:49] VITALS: PULSE 81
--- NOTE | 2024-12-08 14:19 | XRAY ---
Indication: Pelvic/suprapubic pain. Multiple contiguous axial images obtained through the abdomen and pelvis without contrast. Comparison: October 09, 2023 Lung bases again clear. Heart not enlarged. Noncontrasted stomach and bowel loops appear nonobstructed with normal appendix. Again cholecystectomy. New 5.5 x 4.2 cm right ovary cyst. Also new small cul-de-sac fluid presumed ruptured/leaking cyst. No free air. Remaining liver, pancreas, spleen, adrenal glands, kidneys, ureters, bladder, uterus, and aorta are unremarkable for noncontrast exam. Osseous structures intact. Impression: New 5.5 x 4.2 cm right ovary cyst. Also new cul-de-sac fluid presumed from ruptured/leaking cyst. Pelvic sonogram may yield further information if clinically warranted.
[2024-12-08 14:54] VITALS: BP 108/74; O2SAT 100
== END 2024-12-08 14:54 | disposition home or self-care (01) ==
LOC: ED 11:51
DX: N83.201 Unspecified ovarian cyst, right side (principal); R10.31 Right lower quadrant pain; R10.32 Left lower quadrant pain; R10.20 Pelvic and perineal pain unspecified side; Z79.899 Other long term (current) drug therapy